=== PATIENT | female | born 1960 | race American Indian/Alaskan Native ===

== ENCOUNTER 2016-10-14 14:34 | Outpatient (CLI) | payer OTHER ==
--- NOTE | 2016-10-15 07:20 | Nuclear Medicine Report ---
LUNG SCAN, VENTILATION AND PERFUSION: History: Left lung pulmonary embolus. Technique: 5mci of Tc99m MAA was infused for the perfusion images. 15mci XE 133 gas was inhaled for the ventilatory images. Correlation is made with a chest x-ray dated none. Comment: This examination is just presented to me for interpretation. There are no previous exams at this facility. Findings: Inhalation of Xenon gas demonstrates a normal distribution of the activity throughout both lungs. The wash out phases show no focal retention of activity. After injection of Technetium 99m macroaggregated albumin gamma camera imaging of the lungs in multiple projections demonstrates normal pulmonary contours with a homogeneous distribution of activity. No focal areas of perfusion deficiency are identified. IMPRESSION: Low probability for pulmonary embolus.
== END 2016-10-14 14:35 | disposition home or self-care (01) ==
LOC: NM 14:34
PROVIDERS: ATTEND Internal Medicine Pulmonary Disease
DX: I26.90 Septic pulmonary embolism without acute cor pulmonale (principal)
CPT/HCPCS: 78582; A9540; A9558